=== PATIENT | female | born 1940 | race Caucasian/White ===

== ENCOUNTER 2018-02-05 01:49 | Outpatient (CLI) | payer MEDICARE, OTHER, SELFPAY ==
[2018-02-05 10:22] LABS: Abs Immature Grans 0.01 k/cumm (0.0-0.09); Absolute Basophil Count 0.08 k/cumm (0.0-0.2); Absolute Eosinophil Count 0.18 k/cumm (0.0-0.7); Absolute Lymphocyte Count 2.21 k/cumm (1.2-3.4); Absolute Monocyte Count 0.68 k/cumm (0.11-0.7); Basophils % 1.1; Eosinophils % 2.6; HCT 35.6 % (36.0-46.0); HGB 11.1 g/dL (12.0-15.5); Immature Grans % 0.1; Lymphocytes % 31.8; Mean Corp. HGB Concentration 31.2 g/dL (32.0-36.0); Mean Corpuscular Hemoglobin 23.4 pg (27.0-33.0); Mean Corpuscular Volume 74.9 fL (80-95); Mean Platelet Volume 8.1 fL (8.0-11.0); Monocytes % 9.8; Neutrophils % 54.6; Platelet Count 388 x1000/uL (130-400); RBC 4.75 m/cumm (4.00-5.20); RBC Distribution Width 17.6 % (11.7-14.6); White Blood Cell Count 6.96 k/cumm (4.4-10.8)
[2018-02-05 10:44] LABS: ALT 23 U/L (12-78); AST 13 U/L (15-37); Albumin 3.7 g/dL (3.4-5.0); Alkaline Phosphatase 82 U/L (46-116); Anion Gap 10.7 mmol/L (3-11); BUN 16 mg/dL (7-18); Bilirubin, Total 0.3 mg/dL (0.2-1.0); CO2 26.3 mmol/L (21.0-32.0); CREATININE 0.78 mg/dL (0.55-1.02); Calcium 9.3 mg/dL (8.5-10.1); Chloride 101 mmol/L (98-107); Glucose 121 mg/dL (70-100); Sodium 138 mmol/L (136-145); Total Protein 7.5 g/dL (6.4-8.2)
[2018-02-05 10:49] LABS: Diff Comment Diff Reviewed; Microcytosis 2+
== END 2018-02-05 02:09 ==
PROVIDERS: PCP Family Medicine; Visit Provider Nurse Practitioner Adult Health
DX: D50.9 Iron deficiency anemia, unspecified (principal); C50.012 Malignant neoplasm of nipple and areola, left female breast
CPT/HCPCS: 36415; 80053; 85025